=== PATIENT | male | born 1995 | race Caucasian/White ===

== ENCOUNTER 2017-07-01 18:15 | Emergency (ER) | payer BC, OTHER ==
[~2017-07-01] VITALS: Ht 172.7 cm; Wt 81.3 kg
[2017-07-01 18:18] VITALS: TEMP 37; Ht 172.7 cm; Wt 81.3 kg
--- NOTE | 2017-07-01 19:27 | DIAGNOSTIC IMAGING REPORT ---
(TESTICULAR) SCROTUM-CONT CLINICAL HISTORY: 21 years-old Male with left testicular pain eval for mass. Acute left-sided testicular pain COMPARISON STUDY: None available TECHNIQUE: Real-time, grayscale, and color Doppler sonography of the testes and scrotum is performed. Images are reviewed in the transverse and longitudinal planes. FINDINGS: RIGHT HEMISCROTUM: The right testis measures 4.7 x 2.3 x 3.0 cm and the parenchyma appears unremarkable. No intratesticular mass is seen. Normal-appearing arterial inflow is present within the right testicle. The right epididymal head appears normal. No varicocele. Trace amount of fluid surrounding the right testicle is likely physiologic. LEFT HEMISCROTUM: The left testis measures 4.6 x 2.5 x 3.3 cm and the parenchyma appears unremarkable. No intratesticular mass is seen. Normal-appearing arterial inflow is present within the left testicle. The left epididymal head appears normal. No varicocele. Trace amount of fluid surrounding the left testicle is likely physiologic. IMPRESSION: 1. Unremarkable sonographic appearance of the bilateral testicles without evidence of torsion or mass. 2. No evidence of varicocele or hydrocele. The above report was generated using voice recognition software. It may contain grammatical, syntax or spelling errors. Electronically signed by: Ilan Dixon M.D. 07/01/2017 7:25 PM Dictated Date/Time: 07/01/2017 7:23 PM
[2017-07-01] MEDS ORDERED: DOXYCYCLINE HYCLATE 100 MG CAP PO STA (19:28)
[2017-07-01] MEDS ORDERED: CEFTRIAXONE SOD 350MG/ML 1 GM VIAL IM ONE (19:30)
[2017-07-01] MEDS ORDERED: DOXY100C2 PO (19:33)
[2017-07-01 20:04] VITALS: BP 125/59; PULSE 59; O2SAT 97
--- NOTE | 2017-07-01 23:34 | EMERGENCY ROOM VISIT NOTE ---
History Report prepared by Chandni: Nanci Medel Under the Supervision of: Dr. Kentrell Keane M.D. First contact with patient: 18:23 Chief Complaint: TESTICULAR PAIN Stated Complaint: SWELLING AROUND L TESTICLE History of Present Illness The patient is a 21 year old male who presents to the Emergency Room with complaints of intermittent left testicle swelling and discomfort for two weeks. He woke up this morning and noticed that his left testicle was hanging lower than normal. He denies any abnormal discharge. He is sexually active, though he does not use protection every time. He states that he was checked for STDs three weeks ago with a urine test. He denies any unprotected sex since that time. He denies any sexual intercourse with the same sex. He denies any fever, vomiting, or pain with urination. He notes his urine is more yellow than normal , though he attributes it to dehydration. Source of History: patient Onset: two weeks Position: other (left testicle) Symptom Intensity: mild Quality: ache Timing: intermittent Associated Symptoms: No fevers, No vomiting, No urinary symptoms (no pain with urination) Note: He denies any abnormal discharge. Mild testicular swelling. Review of Systems See HPI for pertinent positives & negatives. A total of 10 systems reviewed and were otherwise negative. Past Medical & Surgical Medical Problems: (1) No Known Active Medical Problems Family History Cancer Diabetes mellitus Heart disease Hypertension Kidney disease Kidney stones Social History Smoking Status: Never Smoker Smokeless Tobacco Use: No Alcohol Use: occasionally Drug Use: none Marital Status: single Housing Status: lives with roommate Occupation Status: [employer] student Current/Historical Medications Scheduled Doxycycline Hyclate (Vibramycin), 100 MG PO BID Physical Exam Vital Signs Date Time Temp Pulse Resp B/P (MAP) Pulse Ox O2 Delivery O2 Flow Rate FiO2 07/01/17 20:04 59 18 125/59 97 Room Air 07/01/17 18:18 37.0 65 18 127/71 99 Room Air Physical Exam Constitutional: Vital signs reviewed. Eyes: Pupils are equal round reactive to light. Conjunctiva are noninjected. ENT: Pharynx is clear without erythema or exudate. Mucous membranes are moist. Neck supple without meningeal signs. Respiratory: Clear to auscultation bilaterally. Breath sounds are equal bilaterally. Cardiovascular: Regular rate and rhythm. No rubs or gallops. GI: Soft, nondistended and nontender. Bowel sounds are present. : No inguinal hernias. Slight left testicular tenderness. No swelling or erythema. Uncircumcised penis without discharge. Musculoskeletal: No peripheral edema. No lower extremity tenderness. Integumentary: No cyanosis. Neurological: The patient is awake and alert. No focal deficits. Psychiatric: Normal affect. Medical Decision & Procedures ER Provider Diagnostic Interpretation: Radiology results as stated below per my review and the radiologist's interpretation: (TESTICULAR) SCROTUM-CONT CLINICAL HISTORY: 21 years-old Male with left testicular pain eval for mass. Acute left-sided testicular pain COMPARISON STUDY: None available TECHNIQUE: Real-time, grayscale, and color Doppler sonography of the testes and scrotum is performed. Images are reviewed in the transverse and longitudinal planes. FINDINGS: RIGHT HEMISCROTUM: The right testis measures 4.7 x 2.3 x 3.0 cm and the parenchyma appears unremarkable. No intratesticular mass is seen. Normal-appearing arterial inflow is present within the right testicle. The right epididymal head appears normal. No varicocele. Trace amount of fluid surrounding the right testicle is likely physiologic. LEFT HEMISCROTUM: The left testis measures 4.6 x 2.5 x 3.3 cm and the parenchyma appears unremarkable. No intratesticular mass is seen. Normal-appearing arterial inflow is present within the left testicle. The left epididymal head appears normal. No varicocele. Trace amount of fluid surrounding the left testicle is likely physiologic. IMPRESSION: 1. Unremarkable sonographic appearance of the bilateral testicles without evidence of torsion or mass. 2. No evidence of varicocele or hydrocele. The above report was generated using voice recognition software. It may contain grammatical, syntax or spelling errors. Electronically signed by: Ilan Dixon M.D. 07/01/2017 7:25 PM Dictated Date/Time: 07/01/2017 7:23 PM Laboratory Results Test 07/01/17 18:30 07/01/17 18:40 Urine Color YELLOW Urine Appearance CLEAR (CLEAR) Urine pH 7.0 (4.5-7.5) Urine Specific Morrison 1.027 (1.000-1.030) Urine Protein NEG (NEG) Urine Glucose (UA) NEG (NEG) Urine Ketones NEG (NEG) Urine Occult Blood NEG (NEG) Urine Nitrite NEG (NEG) Urine Bilirubin NEG (NEG) Urine Urobilinogen NEG (NEG) Urine Leukocyte Esterase NEG (NEG) Laboratory results as reviewed by me. Medications Administered Medications (Trade) Dose Ordered Sig/Taiwo Route Start Time Stop Time Status Last Admin Dose Admin Ceftriaxone Sodium (Rocephin Im) 500 mg NOW ONCE IM 07/01/17 19:30 07/01/17 19:31 DC 07/01/17 20:01 500 MG Doxycycline Hyclate (Vibramycin Cap) 100 mg NOW STAT PO 07/01/17 19:28 07/01/17 19:29 DC 07/01/17 19:59 100 MG ED Course 1824: The patient was evaluated in room A4. A complete history and physical exam was performed. 1924: I reassessed the patient at this time. He states that he is allergic to Amoxicillin and he normally develops a rash. I discussed the results and treatment plan with the patient. I answered all pertaining questions that he had. He expressed understanding and verbalized agreement. The patient will be discharged home. 1927: Ordered Doxycycline Hyclate 100 mg PO 1929: Ordered Rocephin 500 mg IM Medical Decision This is a 21-year-old male who presents with testicular pain. Differential diagnosis includes orchitis, epididymitis, mass, torsion, STI. I did perform a limited focused review of portions of the patient's old chart on the electronic medical record. The patient has had no prior visits to this hospital. I did evaluate the patient as noted above. I did obtain a urethral swab for GC and chlamydia which is pending. I did order and personally review the patient' s urine analysis as described above. I did order a sonogram of the scrotum. I did review the images myself as well as the radiology report as described above. There is no evidence of acute abnormality. I did discuss the test results with the patient. I did treat him with IM ceftriaxone. He was also given doxycycline here and discharged with a prescription for doxycycline. He was advised to follow-up with [facility]. He was given return instructions as outlined below. Medication Reconcilliation Current Medication List: was personally reviewed by me Blood Pressure Screening Patient's blood pressure: Elevated blood pressure Blood pressure disposition: Elevated BP felt to be situational Impression Primary Impression: Left testicular pain Scribe Attestation The scribe's documentation has been prepared under my direct and personally reviewed by me in its entirety. I confirm that the note above accurately reflects all work, treatment, procedures, and medical decision making performed by me. Departure Information Dispostion Home / Self-Care Prescriptions Doxycycline Hyclate (VIBRAMYCIN) 100 Mg Cap 100 MG PO BID for 10 Days, #20 CAP Prov: Kentrell Keane M.D. 07/01/17 Referrals No Doctor, Assigned (PCP) Forms HOME CARE DOCUMENTATION FORM, IMPORTANT VISIT INFORMATION, WORK / SCHOOL INSTRUCTIONS Patient Instructions My [facility] Additional Instructions You have been examined and treated today on an emergency basis only. This is not a substitute for, or an effort to provide, complete comprehensive medical care. It is impossible to recognize and treat all injuries or illnesses in a single emergency department visit. It is therefore important that you follow up closely with [facility]. Call as soon as possible for an appointment. Return for worsening symptoms or if you develop fever, vomiting, discharge from the penis or any other concerning symptoms.
== END 2017-07-01 20:22 | disposition home or self-care (01) ==
LOC: C.EDB 18:17 → C.EDA 20:22
DX: N50.812 Left testicular pain (principal); R03.0 Elevated blood-pressure reading, without diagnosis of hypertension; Z83.3 Family history of diabetes mellitus; Z82.49 Family history of ischemic heart disease and other diseases of the circulatory system; Z84.1 Family history of disorders of kidney and ureter